=== PATIENT | female | born 1980 | race Caucasian/White ===

== ENCOUNTER 2018-05-12 16:05 | Inpatient (IN) | payer BC ==
[~2018-05-12] VITALS: Ht 162.6 cm; Wt 52.2 kg
[2018-05-12 16:05] VITALS: BP 115/75
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
[2018-05-12] MEDS ORDERED: HYDROmorphone 1mg/ml Carpuject IVP ONE ×2 (16:30→20:30)
--- NOTE | 2018-05-12 16:44 | Emergency Room Report ---
History of Present Illness General Chief Complaint: Back Pain-No Injury Source: Patient Present Illness HPI 37-year-old female patient presents the ER brought in by ambulance complaining of low back pain for the past hour. Patient reports history of chronic low back pain however states that this is worse. Reports has had similar attacks of acute exacerbations of chronic pain in the past. Denies bowel or bladder incontinence. Reports pain radiating down legs. Denies abdominal pain. Denies fever, chest pain, shortness of breath. Denies acute injury or accident. 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 Reports not currently taking any medication for relief of pain symptoms. Denies dysuria, hematuria. Allergies: Coded Allergies: SULFA (SULFONAMIDE ANTIBIOTICS) (Verified Allergy, Intermediate, 05/12/18) Patient History Past Medical History: see triage record Now: No Reviewed Nursing Documentation: PMH: Agreed; PSxH: Agreed Nursing Documentation-PMH Hx COPD: Yes Review of Systems All Other Systems: negative except mentioned in HPI Physical Exam Vital Signs Date Time Temp Pulse Resp B/P (MAP) Pulse Ox O2 Delivery O2 Flow Rate FiO2 05/12/18 16:05 97.9 88 16 115/75 98 Room Air Sp02 EP Interpretation: reviewed, normal General Appearance: well appearing, no apparent distress, alert, GCS 15, non- toxic Head: normocephalic, atraumatic Eyes: bilateral eye normal inspection, bilateral eye PERRL ENT: hearing grossly normal, normal pharynx, no angioedema, normal voice, uvula midline, moist mucus membranes Neck: full range of motion, no bony tend Respiratory: lungs clear, normal breath sounds, no rhonchi, no respiratory distress, no accessory muscle use, no wheezing, speaking full sentences Cardiovascular #1: regular rate, rhythm, no edema Gastrointestinal: non tender, soft, no mass, non-distended, no guarding, no rebound Rectal: normal rectal tone, other - No saddle anesthesia Genitourinary: no CVA tenderness Musculoskeletal: back normal, digits/nails normal, gait/station normal, normal range of motion, non-tender Neurologic: alert, oriented x3, responsive, motor strength/tone normal, sensory intact Psychiatric: mood/affect normal Skin: no rash Medical Decision Making PA Attestation Dr. Perdue is my supervising Physician whom patient management has been discussed with. Diagnostic Impression: Primary Impression: Intractable back pain Additional Impression: History of COPD ER Course Pt presents to ED c/o back pain. DDX considered but are not limited to sprain, strain, cauda equine, epidural abscess, AAA, spinal cord compression, kidney stones. No fever, nontoxic appearing, no radiation of pain, low suspicion for epidural mass. No abdominal pain, no blood pressure elevation, nontoxic appearing, low suspicion for AAA. VITAL SIGNS are WNL, patient is afebrile Ordered pain medication, imaging, labs. ER COURSE: Pain medication provided. CBC and CMP unremarkable, no elevation in WBCs UA unremarkable, negative nitrites, denies pains, low suspicion for UTI. Urine negative. CT thoracic and lumbar spine are negative for acute fracture. Loss of vertebral body height noted on thoracic CT. On repeat examination, patient complaining of bilateral leg weakness and bladder incontinence, no saddle anesthesia, good rectal tone, low suspicion for cauda equina however will order lumbar spine to rule out cord compression or cauda equina. Patient seen and evaluated by Dr. Hitchcock, agrees with assessment treatment plan. Patient seen and evaluated by Dr. Perdue, will admit patient for intractable pain. Provide with second dose of Dilaudid pain medication. MRI lumbar spine shows No acute abnormality. Chronic appearing superior endplate compression fracture deformity of L1 in patient with known history of multiple vertebral compression fractures. Associated mild T12-L1 disc degeneration and Schmorl's node. Incidental finding left renal cyst - Please note that this Emergency Department Report was dictated using [employer] sprinkler service technician technology software, occasionally this can lead to erroneous entry secondary to interpretation by the dictation equipment. Labs Test 05/12/18 16:39 05/12/18 18:20 White Blood Count 6.5 K/UL (4.8-10.8) Red Blood Count 3.98 M/UL (4.20-5.40) Hemoglobin 12.5 G/DL (12.0-16.0) Hematocrit 37.2 % (37.0-47.0) Mean Corpuscular Volume 94 FL (80-99) Mean Corpuscular Hemoglobin 31.3 PG (27.0-31.0) Mean Corpuscular Hemoglobin Concent 33.5 G/DL (32.0-36.0) Red Cell Distribution Width 11.6 % (11.6-14.8) Platelet Count 125 K/UL (150-450) Mean Platelet Volume 9.2 FL (6.5-10.1) Neutrophils (%) (Auto) 47.6 % (45.0-75.0) Lymphocytes (%) (Auto) 42.0 % (20.0-45.0) Monocytes (%) (Auto) 7.0 % (1.0-10.0) Eosinophils (%) (Auto) 1.8 % (0.0-3.0) Basophils (%) (Auto) 1.7 % (0.0-2.0) Sodium Level 141 MMOL/L (136-145) Potassium Level 3.6 MMOL/L (3.5-5.1) Chloride Level 107 MMOL/L (98-107) Carbon Dioxide Level 27 MMOL/L (21-32) Anion Gap 7 mmol/L (5-15) Blood Urea Nitrogen 13 mg/dL (7-18) Creatinine 0.8 MG/DL (0.55-1.30) Estimat Glomerular Filtration Rate > 60 mL/min (>60) Glucose Level 80 MG/DL (74-106) Calcium Level 8.7 MG/DL (8.5-10.1) Total Bilirubin 0.4 MG/DL (0.2-1.0) Aspartate Amino Transf (AST/SGOT) 11 U/L (15-37) Alanine Aminotransferase (ALT/SGPT) 18 U/L (12-78) Alkaline Phosphatase 79 U/L (46-116) Total Protein 6.2 G/DL (6.4-8.2) Albumin 3.3 G/DL (3.4-5.0) Globulin 2.9 g/dL Albumin/Globulin Ratio 1.1 (1.0-2.7) Lipase 91 U/L (73-393) Urine Color Pale yellow Urine Appearance Slightly cloudy Urine pH 6 (4.5-8.0) Urine Specific [place] 1.015 (1.005-1.035) Urine Protein Negative (NEGATIVE) Urine Glucose (UA) Negative (NEGATIVE) Urine Ketones Negative (NEGATIVE) Urine Blood 1+ (NEGATIVE) Urine Nitrite Negative (NEGATIVE) Urine Bilirubin Negative (NEGATIVE) Urine Urobilinogen Normal MG/DL (0.0-1.0) Urine Leukocyte Esterase Negative (NEGATIVE) Urine RBC 0-2 /HPF (0 - 2) Urine WBC 0-2 /HPF (0 - 2) Urine Squamous Epithelial Cells Many /LPF (NONE/OCC) Urine Bacteria Moderate /HPF (NONE) Urine HCG, Qualitative Negative (NEGATIVE) CT/MRI/US Diagnostic Results CT/MRI/US Diagnostic Results #1: Imaging Test Ordered: CT thoracic spine Impression No definitive acute fracture or traumatic malalignment of the thoracic spine. Exaggerated thoracic kyphosis with multilevel vertebral body height loss and anterior wedging as well as disc space height loss and osteophytosis. No significant spinal canal stenosis. 4 mm right thyroid nodule. Small left and possible right pleural effusions. CT/MRI/US Diagnostic Results #2: Imaging Test Ordered: CT lumbar spine Impression No fracture or traumatic malalignment of the lumbar spine. L1 Schmorl's node. No spinal canal or neural foraminal stenosis. CT/MRI/US Diagnostic Results #3: Imaging Test Ordered: MRI L spine Impression Impression: No acute abnormality Chronic appearing superior endplate compression fracture deformity of L1 in patient with known history of multiple vertebral compression fractures. Associated mild T12-L1 disc degeneration and Schmorl's node Incidental finding left renal cyst Last Vital Signs Date Time Temp Pulse Resp B/P (MAP) Pulse Ox O2 Delivery O2 Flow Rate FiO2 05/12/18 16:05 97.9 88 16 115/75 98 Room Air Disposition: ADMITTED INPATIENT Condition: Serious Danny Upton May 12, 2018 16:44
--- NOTE | 2018-05-12 16:45 | NUR ---
ED Nurse Note: Pt unable to giove urine sample. Will try again later.
[2018-05-12 17:01] LABS: BASOPHILS % (AUTO) 1.7 % (0.0-2.0); EOSINOPHILS % (AUTO) 1.8 % (0.0-3.0); HEMATOCRIT 37.2 % (37.0-47.0); HEMOGLOBIN 12.5 G/DL (12.0-16.0); MEAN CORPUSCULAR VOLUME 94 FL (80-99); NEUTROPHILS % (AUTO) 47.6 % (45.0-75.0); PLATELET COUNT 125 K/UL (150-450); RED BLOOD COUNT 3.98 M/UL (4.20-5.40); RED CELL DISTRIBUTION WIDTH 11.6 % (11.6-14.8); WHITE BLOOD COUNT 6.5 K/UL (4.8-10.8)
[2018-05-12 17:22] LABS: ANION GAP 7 mmol/L (5-15); BLOOD UREA NITROGEN 13 mg/dL (7-18); CALCIUM 8.7 MG/DL (8.5-10.1); CARBON DIOXIDE 27 MMOL/L (21-32); CHLORIDE 107 MMOL/L (98-107); CREATININE 0.8 MG/DL (0.55-1.30); POTASSIUM 3.6 MMOL/L (3.5-5.1); SODIUM 141 MMOL/L (136-145)
[2018-05-12 17:26] LABS: ALANINE AMINOTRANSFERASE 18 U/L (12-78); ALBUMIN 3.3 G/DL (3.4-5.0); ALBUMIN/GLOBULIN RATIO 1.1 (1.0-2.7); ALKALINE PHOSPHATASE 79 U/L (46-116); ASPARTATE AMINO TRANSFERASE 11 U/L (15-37); BILIRUBIN,TOTAL 0.4 MG/DL (0.2-1.0)
--- NOTE | 2018-05-12 17:45 | NUR ---
ED Nurse Note: Pt still unable to provide a urine specimen at this time.
--- NOTE | 2018-05-12 18:07 | NUR ---
ED Nurse Note: Urine specimen sent.
[2018-05-12 18:41] LABS: APPEARANCE,URINE SLIGHTLY CLOUDY; BILIRUBIN, URINE NEGATIVE (NEGATIVE); COLOR,URINE PALE YELLOW; GLUCOSE, URINE (UA) NEGATIVE (NEGATIVE); KETONES,URINE NEGATIVE (NEGATIVE); LEUKOCYTE ESTERASE ,URINE NEGATIVE (NEGATIVE); NITRITE,URINE NEGATIVE (NEGATIVE); PH,URINE 6 (4.5-8.0); PROTEIN,URINE NEGATIVE (NEGATIVE); UROBILINOGEN,URINE NORMAL MG/DL (0.0-1.0)
[2018-05-12 19:00] VITALS: BP 114/76
--- NOTE | 2018-05-12 19:27 | NUR ---
HAND-OFF: Report given to Dontae LEAVITT.
--- NOTE | 2018-05-12 19:30 | NUR ---
ED Nurse Note: PT was reassessed. pt was instructed about signs and simptoms of all prescribed medications. pt vital signs are stable at this time. pt is alert and oriented times 4.
[2018-05-12] MEDS ORDERED: CYCLOBENZAPRINE10 MG ORAL (20:44)
[2018-05-12] MEDS ORDERED: VITAMIN B COMP1 EAC2 ORAL (20:44)
[2018-05-12] MEDS ORDERED: ASPIRIN325 MG ORAL (20:44)
[2018-05-12] MEDS ORDERED: VALIUM10 MG ORAL (20:44)
[2018-05-12] MEDS ORDERED: IBUPROFEN600 MG ORAL (20:44)
[2018-05-12] MEDS ORDERED: Trelegy Ellipta INH (20:44)
[2018-05-12] MEDS ORDERED: VITAMIN D1000 UNI1 ORAL (20:44)
[2018-05-12] MEDS ORDERED: GABAPENTIN600 MG ORAL (20:44)
[2018-05-12] MEDS ORDERED: FORTEO2.4 ML SUBQ (20:44)
[2018-05-12] MEDS ORDERED: MULTIVITAMINS1 EAC2 ORAL (20:44)
[2018-05-12] MEDS ORDERED: SOMA350 MG PO (20:44)
[2018-05-12] MEDS ORDERED: FLUDROCORTISON0.1 MG PO (20:44)
[2018-05-12] MEDS ORDERED: TRAZODONE HCL100 MG ORAL (20:44)
[2018-05-12] MEDS ORDERED: TYLENOL EXTRA500 MG ORAL (20:44)
[2018-05-12 21:10] VITALS: BP 115/78
--- NOTE | 2018-05-12 21:40 | NUR ---
ED Nurse Note: PT was reassessed at this time. pt boyfriend is still in bed side. pt and boy friend was offered a sandwhich and juice. pt vital signs are stable at this time. pt is alert and oriented times 4. pulse and sensation is noted on all extremities. cap refill is less than 3.
[2018-05-12 22:54] VITALS: BP 119/76
--- NOTE | 2018-05-12 23:41 | NUR ---
ED Nurse Note: Pt is reassessed at this time. vital signs are stable. pt is alert and oriented times 4. boy friend is still at bed side.
[2018-05-13] VITALS (8 sets, daily range): BP systolic 92–126; BP diastolic 54–87
--- NOTE | 2018-05-13 01:40 | NUR ---
ED Nurse Note: Pt is asleep at this time. pt vital signs are stable. pt vital signs from portable machine: BP:109/60, HR: 65, O2% at 98, temp : 98.4
[2018-05-13] MEDS ORDERED: HYDROcodone/Acetamin 10/325 tab ORAL SCH (01:45)
[2018-05-13] MEDS ORDERED: Norco 5mg/325mg tab ORAL SCH (01:45)
[2018-05-13] MEDS ORDERED: Morphine Sulfate 2mg/ml Inj IVP PRN ×2 (01:45→09:22)
--- NOTE | 2018-05-13 02:00 | NUR ---
ED Nurse Note: Pt was offered Morphine IV 2MG per ERMD order. PT refused mediaction saying "it is not strong enough for her"
--- NOTE | 2018-05-13 04:00 | NUR ---
ED Nurse Note: Pt is reassesed at this time. pt vital signs is stable. pt is still asleep.
[2018-05-13] MEDS ORDERED: Morphine Sulfate 2mg/ml Inj IVP SCH (05:15)
[2018-05-13] MEDS ORDERED: Morphine Sulfate 2mg/ml Inj ONE (05:19)
--- NOTE | 2018-05-13 05:30 | NUR ---
ED Nurse Note: pt stated she was in pain. pipe line was contacted. SILVANO simpson Chargr RN approved of Hydromorphone 1MG IVP. vital signs are stable and were reported to SILVANO prior to requesting pain medication.
--- NOTE | 2018-05-13 05:40 | NUR ---
ED Nurse Note: Phone with impression printer MD Mcdonald, verified with all meds orders. Inform pharmacy and left message verified all the meds.
[2018-05-13] MEDS ORDERED: Norco 5mg/325mg tab ORAL PRN ×2 (06:00→10:15)
[2018-05-13] MEDS ORDERED: HYDROcodone/Acetamin 10/325 tab ORAL PRN ×2 (06:00→10:15)
[2018-05-13 06:26] LABS: BASOPHILS % (AUTO) 1.2 % (0.0-2.0); EOSINOPHILS % (AUTO) 1.7 % (0.0-3.0); HEMATOCRIT 34.6 % (37.0-47.0); HEMOGLOBIN 11.8 G/DL (12.0-16.0); LYMPHOCYTES % (AUTO) 35.4 % (20.0-45.0); MEAN CORPUSCULAR VOLUME 94 FL (80-99); MONOCYTES % (AUTO) 6.4 % (1.0-10.0); NEUTROPHILS % (AUTO) 55.2 % (45.0-75.0); PLATELET COUNT 122 K/UL (150-450); RED CELL DISTRIBUTION WIDTH 11.5 % (11.6-14.8); WHITE BLOOD COUNT 7.3 K/UL (4.8-10.8)
[2018-05-13 06:35] LABS: ANION GAP 6 mmol/L (5-15); BLOOD UREA NITROGEN 10 mg/dL (7-18); CALCIUM 7.8 MG/DL (8.5-10.1); CARBON DIOXIDE 28 MMOL/L (21-32); CHLORIDE 107 MMOL/L (98-107); CREATININE 0.7 MG/DL (0.55-1.30); POTASSIUM 3.2 MMOL/L (3.5-5.1); SODIUM 141 MMOL/L (136-145)
--- NOTE | 2018-05-13 07:14 | NUR ---
ED Nurse Note: Report given to TREE Jain at ext [phone]. Pt to be transfered to room 410-2 per protocol with all belongings.
--- NOTE | 2018-05-13 08:07 | NUR ---
NURSE NOTES: received pt awake alert, no distress. in pain back pain 12/07 , paged Dr Weir received a call back , per md he will take a look at it since he is in ICU, relayed to md that pt is in pain and rn needs order for pain meds, diet order, code status call light within reach of pt. sacral area is intact.
[2018-05-13] MEDS ORDERED: VALIUM10 MG ORAL (08:50)
--- NOTE | 2018-05-13 09:37 | NUR ---
NURSE NOTES: per pt she takes valium 10 mg tid , relayed to DR Weir in person , per he will see the pt first.
--- NOTE | 2018-05-13 09:45 | NUR ---
NURSE NOTES: pt awake alert, no distress. call light within reach. bed in lowest position, locked. will monitor. Dr Weir aware of k level today, per md he will order.
[2018-05-13] MEDS: HYDROmorphone 1mg/ml Carpuject IVP PRN ×4 (10:11→21:58)
--- NOTE | 2018-05-13 11:02 | Diagnostic Imaging Report ---
Indication: Lower back pain, unable to move legs Technique: Sagittal T1 and T2 fast spin echo, sagittal STIR, axial T1 and T2 fast spin-echo images of the lumbar spine Comparison: Reference made to lumbar spine CT scan of earlier the same day Findings: There is slight superior endplate compression fracture deformity of the L1 vertebral body with associated L1 superior endplate intravertebral disc herniation. No underlying marrow edema demonstrated. There is some associated loss of disc height at this level. There is a small hemangioma within L1. The remainder of the vertebral marrow signal is normal. The remaining vertebral body heights are preserved. The disc spaces are preserved. The conus medullaris terminates at the L1 level. No significant disc bulge or protrusion, spinal stenosis, or neural foraminal stenosis noted. The included extra spinal soft tissues demonstrate a cyst in the left kidney. Impression: No acute abnormality Chronic appearing superior endplate compression fracture deformity of L1 in patient with known history of multiple vertebral compression fractures. Associated mild T12-L1 disc degeneration and Schmorl's node Incidental finding left renal cyst This essentially agrees with the [facility] preliminary report, with minor variation
--- NOTE | 2018-05-13 11:22 | NUR ---
NURSE NOTES: pt requested for guillaume due to feeling of urgency but unable to urinate; guillaume 16fr inserted patent and intact, pt had 599 ml from bladder scan. Dr Weir ordered guillaume
[2018-05-13] MEDS: Cyclobenzaprine 10mg Tab ORAL SCH ×2 (13:08→21:44)
--- NOTE | 2018-05-13 14:22 | History and Physical ---
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 Reports has had similar attacks of acute exacerbations of chronic pain in the past. Denies bowel or bladder incontinence. Reports pain radiating down legs. Denies abdominal pain. Denies fever, chest pain, shortness of breath. Denies acute injury or accident. Reports not currently taking any medication for relief of pain symptoms. Denies dysuria, hematuria. She was treated with IV morphine without improvement in her symptoms, did get pain relief with IV Dilaudid. Family History: No CAD or stroke Social History: Former smoker Allergies: Coded Allergies: SULFA (SULFONAMIDE ANTIBIOTICS) (Verified Allergy, Intermediate, 05/12/18) Medication History Scheduled Aspirin* (Aspirin*), 325 MG ORAL DAILY, (Reported) Carisoprodol* (Soma*), 350 MG PO BID, (Reported) Cholecalciferol (Vitamin D3)* (Vitamin D*), 3,000 UNITS ORAL DAILY, (Reported) Cyclobenzaprine Hcl* (Flexeril*), 10 MG ORAL THREE TIMES A DAY, (Reported) Diazepam* (Valium*), 10 MG ORAL TID, (Reported) Diazepam* (Valium*), 10 MG ORAL TID, (Reported) Fludrocortisone Acetate (Fludrocortisone Acetate), 0.1 MG PO DAILY, (Reported) Gabapentin* (Gabapentin*), 600 MG ORAL THREE TIMES A DAY, (Reported) Ibuprofen* (Motrin*), 800 MG ORAL THREE TIMES A DAY, (Reported) Multivitamins* (Multivitamins*), 1 TAB ORAL DAILY, (Reported) Teriparatide Acetate (Forteo), 20 MCG SUBQ DAILY, (Reported) Trazodone Hcl* (Desyrel*), 100 MG ORAL BEDTIME, (Reported) [Trelegy Ellipta], 1 INH DAILY, (Reported) Scheduled PRN Acetaminophen* (Tylenol Extra Strength*), 500 MG ORAL Q4HR PRN for Mild Pain/ Temp > 100.5, (Reported) Miscellaneous Medications Vitamin B Complex (Vitamin B Complex), 1 CAP ORAL, (Reported) Patient History Healthcare decision maker Resuscitation status Advanced Directive on File Review of Systems Constitutional: Denies: chills, fever Eye: Denies: eye pain, blurred vision ENT: Denies: ear pain, ear discharge Respiratory: Denies: cough, shortness of breath Cardiovascular: Denies: chest pain, edema, palpitations Gastrointestinal: Denies: abdominal pain, constipation Genitourinary: Denies: discharge, dysuria Musculoskeletal: Denies: back pain, gout Skin: Denies: rash, change in color Neurological: Denies: headache, numbness, paresthesia, seizure, tingling, tremors, focal weakness Physical Exam General Appearance: no apparent distress, alert Lines, tubes and drains: peripheral HEENT: normocephalic, atraumatic, anicteric, mucous membranes moist Neck: non-tender, normal alignment, supple Respiratory/Chest: chest wall non-tender, lungs clear, normal breath sounds, no respiratory distress Cardiovascular/Chest: normal peripheral pulses, normal rate, regular rhythm Abdomen: normal bowel sounds, non tender, soft, no organomegaly, no mass Extremities: non-tender, normal inspection, no calf tenderness Neurologic: bakery clerk II-XII grossly normal, no motor/sensory deficits, alert, oriented x 3 Last 24 Hour Vital Signs Date Time Temp Pulse Resp B/P (MAP) Pulse Ox O2 Delivery O2 Flow Rate FiO2 05/13/18 13:38 98.0 05/13/18 13:37 98.0 05/13/18 13:37 98.0 05/13/18 10:41 98.0 05/13/18 09:34 Room Air 05/13/18 09:09 98.0 05/13/18 09:09 98.0 05/13/18 08:04 98.0 67 20 106/68 (81) 97 05/13/18 07:15 97.9 78 15 126/87 99 Room Air 05/13/18 06:56 97.9 78 15 126/87 99 Room Air 05/13/18 05:52 97.9 05/13/18 05:07 97.9 74 17 123/85 99 Room Air 05/13/18 03:20 97.9 68 16 120/82 99 Room Air 2/14/19 01:15 97.9 61 16 115/79 98 Room Air 05/12/18 22:54 97.9 65 15 119/76 99 Room Air 05/12/18 21:10 97.9 73 14 115/78 99 Room Air 05/12/18 21:07 97.8 05/12/18 19:00 97.9 70 15 114/76 99 Room Air 05/12/18 17:13 97.8 05/12/18 16:05 97.9 16 115/75 98 Room Air 05/12/18 16:05 97.9 88 16 115/75 98 Room Air Intake and Output 05/12/18 05/13/18 19:00 07:00 Intake Total 1000 ml Balance 1000 ml Intake IV Total 1000 ml # Voids 1 Laboratory Tests Test 05/12/18 16:39 05/12/18 18:20 05/13/18 06:17 White Blood Count 6.5 K/UL (4.8-10.8) 7.3 K/UL (4.8-10.8) Red Blood Count 3.98 M/UL (4.20-5.40) L 3.70 M/UL (4.20-5.40) L Hemoglobin 12.5 G/DL (12.0-16.0) 11.8 G/DL (12.0-16.0) L Hematocrit 37.2 % (37.0-47.0) 34.6 % (37.0-47.0) L Mean Corpuscular Volume 94 FL (80-99) 94 FL (80-99) Mean Corpuscular Hemoglobin 31.3 PG (27.0-31.0) H 32.0 PG (27.0-31.0) H Mean Corpuscular Hemoglobin Concent 33.5 G/DL (32.0-36.0) 34.2 G/DL (32.0-36.0) Red Cell Distribution Width 11.6 % (11.6-14.8) 11.5 % (11.6-14.8) L Platelet Count 125 K/UL (150-450) L 122 K/UL (150-450) L Mean Platelet Volume 9.2 FL (6.5-10.1) 9.8 FL (6.5-10.1) Neutrophils (%) (Auto) 47.6 % (45.0-75.0) 55.2 % (45.0-75.0) Lymphocytes (%) (Auto) 42.0 % (20.0-45.0) 35.4 % (20.0-45.0) Monocytes (%) (Auto) 7.0 % (1.0-10.0) 6.4 % (1.0-10.0) Eosinophils (%) (Auto) 1.8 % (0.0-3.0) 1.7 % (0.0-3.0) Basophils (%) (Auto) 1.7 % (0.0-2.0) 1.2 % (0.0-2.0) Sodium Level 141 MMOL/L (136-145) 141 MMOL/L (136-145) Potassium Level 3.6 MMOL/L (3.5-5.1) 3.2 MMOL/L (3.5-5.1) L Chloride Level 107 MMOL/L (98-107) 107 MMOL/L (98-107) Carbon Dioxide Level 27 MMOL/L (21-32) 28 MMOL/L (21-32) Anion Gap 7 mmol/L (5-15) 6 mmol/L (5-15) Blood Urea Nitrogen 13 mg/dL (7-18) 10 mg/dL (7-18) Creatinine 0.8 MG/DL (0.55-1.30) 0.7 MG/DL (0.55-1.30) Estimat Glomerular Filtration Rate > 60 mL/min (>60) > 60 mL/min (>60) Glucose Level 80 MG/DL (74-106) 72 MG/DL (74-106) L Calcium Level 8.7 MG/DL (8.5-10.1) 7.8 MG/DL (8.5-10.1) L Total Bilirubin 0.4 MG/DL (0.2-1.0) Aspartate Amino Transf (AST/SGOT) 11 U/L (15-37) L Alanine Aminotransferase (ALT/SGPT) 18 U/L (12-78) Alkaline Phosphatase 79 U/L (46-116) Total Protein 6.2 G/DL (6.4-8.2) L Albumin 3.3 G/DL (3.4-5.0) L Globulin 2.9 g/dL Albumin/Globulin Ratio 1.1 (1.0-2.7) Lipase 91 U/L (73-393) Urine Color Pale yellow Urine Appearance Slightly cloudy Urine pH 6 (4.5-8.0) Urine Specific [place] 1.015 (1.005-1.035) Urine Protein Negative (NEGATIVE) Urine Glucose (UA) Negative (NEGATIVE) Urine Ketones Negative (NEGATIVE) Urine Blood 1+ (NEGATIVE) H Urine Nitrite Negative (NEGATIVE) Urine Bilirubin Negative (NEGATIVE) Urine Urobilinogen Normal MG/DL (0.0-1.0) Urine Leukocyte Esterase Negative (NEGATIVE) Urine RBC 0-2 /HPF (0 - 2) Urine WBC 0-2 /HPF (0 - 2) Urine Squamous Epithelial Cells Many /LPF (NONE/OCC) H Urine Bacteria Moderate /HPF (NONE) H Urine HCG, Qualitative Negative (NEGATIVE) Microbiology Date/Time Source Procedure Growth Status 05/12/18 18:20 Urine,Clean Catch Urine Culture - Preliminary NO GROWTH Resulted Height (Feet): 5 Height (Inches): 4.00 Weight (Pounds): 120 Medications Current Medications Medications (Trade) Dose Ordered Sig/Carmen Route PRN Reason Start Time Stop Time Status Last Admin Dose Admin Acetaminophen (Tylenol) 650 mg Q6HR ORAL 05/13/18 01:45 06/12/18 01:44 05/13/18 13:07 Acetaminophen/ Hydrocodone Bitart ([place] 10/325) 1 tab Q4H PRN ORAL Moderate pain 4-6 05/13/18 10:15 05/20/18 05:59 Acetaminophen/ Hydrocodone Bitart ([place] 5/325) 1 tab Q4H PRN ORAL Mild Pain 1-3 05/13/18 10:15 05/20/18 05:59 Aspirin (ASA) 325 mg DAILY ORAL 05/13/18 09:00 06/12/18 08:59 05/13/18 08:38 Carisoprodol (Soma) 350 mg BID ORAL 05/13/18 09:00 06/12/18 08:59 05/13/18 08:39 Cyclobenzaprine HCl (Flexeril) 10 mg Q8HR ORAL 05/13/18 14:00 06/12/18 13:59 05/13/18 13:08 Fludrocortisone Acetate (Florinef) 0.1 mg DAILY ORAL 05/13/18 09:00 06/12/18 08:59 05/13/18 08:46 Gabapentin (Neurontin) 600 mg THREE TIMES A DAY ORAL 05/13/18 09:00 06/12/18 08:59 05/13/18 13:07 Hydromorphone HCl (Dilaudid) 1 mg Q4H PRN IVP Severe Pain (Pain Scale 7-10) 05/13/18 10:00 05/20/18 09:59 05/13/18 13:57 Ibuprofen (Advil) 800 mg TID ORAL 05/13/18 09:00 06/12/18 08:59 05/13/18 13:07 Ondansetron HCl (Zofran) 4 mg Q4H PRN IVP Nausea & Vomiting 05/13/18 06:00 06/12/18 05:59 Trazodone HCl (Desyrel) 100 mg BEDTIME ORAL 05/13/18 21:00 06/12/18 20:59 Assessment/Plan Assessment/Plan #Acute on chronic back pain #history of Xander-Danlos and OI #history of chronic spinal compression fractures #MRI spine without acute pathology #Urinary retention #Hypokalemia -admit to medical floor -started IV Dilaudid for severe pain -PT/OT evals -Haji catheter placed -replace oral KCl -check BMP in AM Full Code VTE PPx I spent 70 minutes on this patient's case, and~35~minutes was dedicated to counseling and/or care coordination. Jasbir Good MD May 13, 2018 14:22
--- NOTE | 2018-05-13 17:39 | Diagnostic Imaging Report ---
Indications: Severe back pain radiating down back and legs Technique: Spiral acquisitions obtained through the lumbar spine. Multiplanar reconstructions were generated. No IV contrast utilized. Total dose length product 855 mGycm. CTDIvol(s) 14, 10 mGy. Dose reduction achieved using automated exposure control Comparison: none Findings: There is a superior endplate compression fracture deformity of the L1 vertebral body. The remaining vertebral body heights are preserved. No other acute fractures. No dislocations. The disc spaces are preserved. No significant disc bulge or protrusion, spinal stenosis, or neural foraminal stenosis. The included extra spinal soft tissues are unremarkable Impression: L1 superior endplate compression fracture deformity, age indeterminate. Possibly old, given stated clinical history of multiple prior compression fractures. MRI may be useful to clarify acuity as clinically indicated No definite acute bony trauma otherwise This agrees with the [facility] preliminary report, with some variation The CT scanner at [facility] is accredited by the [place] and the scans are performed using protocols designed to limit radiation exposure to as low as reasonably achievable to attain images of sufficient resolution adequate for diagnostic evaluation.
--- NOTE | 2018-05-13 17:39 | Diagnostic Imaging Report ---
Indication: Severe low back pain Technique: Spiral acquisitions obtained through the thoracic spine. No IV contrast utilized. Multiplanar reconstructions were generated. Total dose length product 855.44 mGycm. CTDIvol(s) 14.71,10.63 mGy. Dose reduction achieved using automated exposure control Comparison: none Findings: There is an anterior wedge compression fracture deformity resulting in about 40% loss of height involving the T6 vertebral body. There is more questionable slight loss of height of the T3 and T4 vertebral bodies, as well as suggestion of a slight superior endplate compression of the T7 vertebral body. There is approximately 20% height loss anteriorly of the T8 vertebral body and of the T9 vertebral body. There is a superior endplate compression fracture deformity of the L1 vertebral body. The thoracic deformities result in upper thoracic kyphotic deformity. The remainder of the bony alignment is normal. No other fractures are evident. No evidence of significant disc bulge or protrusion, spinal stenosis, or neural foraminal stenosis. There are degenerative proliferative changes of the upper thoracic spine. The disc spaces are preserved. There is minimal lower thoracic facet arthrosis on the left. The included extraspinal soft tissues demonstrate small bilateral pleural effusions. Multiple small subcentimeter nodules are seen in the right thyroid lobe. Surgical clips are seen in the right upper quadrant of the abdomen. Impression: Multiple thoracic and upper lumbar compression fracture deformities, as described. Acuity indeterminate, but technologist report states patient has clinical history of multiple compression fractures. Consider MRI for better clarification of acuity if clinically indicated. Upper thoracic kyphosis related to the above Multiple subcentimeter right lobe thyroid nodule. No further evaluation necessary Small bilateral right pleural effusions Evidence of prior cholecystectomy This agrees with the preliminary interpretation provided overnight by [facility] teleradiology service. The CT scanner at [facility] is accredited by the [employer] and the scans are performed using protocols designed to limit radiation exposure to as low as reasonably achievable to attain images of sufficient resolution adequate for diagnostic evaluation.
--- NOTE | 2018-05-13 19:01 | NUR ---
HAND-OFF: Report given to VAIBHAV LEAVITT.
--- NOTE | 2018-05-13 19:30 | NUR ---
NURSE NOTES: Received patient in no apparent distress. A&OX4. IV site patent and intact. Haji draining well by gravity, yellow urine noted. Visitor at bedside. Bed in lowest position. Call light within reach. Will continue to monitor.
--- NOTE | 2018-05-13 20:51 | NUR ---
CASE MANAGEMENT: INITIAL REVIEW 05/12/2018 37 YO F BIBA FROM HOME CC: SEVERE LOW BACK PAIN PMHx: DENIES SI:INTRACTABLE PAIN. T 97.9 HR 88 RR 16 B/P 115/75 SATS 98% ON RA AST 11 IS: DILAUDID IV X1 NS BOLUS X1 CT L SPINE (Impression: L1 superior endplate compression fracture deformity, age indeterminate. Possibly old, given stated clinical history of multiple prior compression fractures. MRI may be useful to clarify acuity as clinically indicated) CT T SPINE (Impression: Multiple thoracic and upper lumbar compression fracture deformities, as described. Acuity indeterminate, but technologist report states patient has clinical history of multiple compression f Fractures. Consider MRI for better clarification of acuity if clinically indicated.) MRI L SPINE (Impression: No acute abnormality) PATIENT ADMITTED TO MED/SURG 05/12/2018 @ 1948 DCP: PATIENT TO BE DISCHARGED TO HOME ONCE MEDICALLY CLEARED. PLAN OF CARE: -started IV Dilaudid for severe pain -PT/OT evals -Haji catheter placed -replace oral KCl 05/13/2018 SI:INTRACTABLE PAIN. T 98 HR 82 RR 20 B/P 104/68 SATS 97% ON RA K 3.2 IS: TRAZODONE PO QHS ASA PO QD FLORINEF PO QD SOMA PO Q12H TYLENOL PO Q6H FLEXERIL PO Q8H ADVIL PO TID GABAPENTIN PO TID MED/SURG STATUS DCP: PATIENT TO BE DISCHARGED TO HOME ONCE MEDICALLY CLEARED. PLAN OF CARE: PAIN MANAGEMENT
[2018-05-13] MEDS ORDERED: TraZODone 100mg tab ORAL SCH (21:00)
[2018-05-14] VITALS: BP 108/56
[2018-05-14 05:00] VITALS: BP 90/53
[2018-05-14] MEDS: HYDROmorphone 1mg/ml Carpuject IVP PRN ×3 (06:03→14:05)
[2018-05-14] MEDS: Cyclobenzaprine 10mg Tab ORAL SCH ×2 (06:03→14:05)
--- NOTE | 2018-05-14 07:27 | NUR ---
HAND-OFF: Report given to Cecilia LEAVITT.
[2018-05-14 07:31] LABS: ANION GAP 6 mmol/L (5-15); BLOOD UREA NITROGEN 10 mg/dL (7-18); CALCIUM 8.4 MG/DL (8.5-10.1); CARBON DIOXIDE 27 MMOL/L (21-32); CHLORIDE 109 MMOL/L (98-107); CREATININE 0.7 MG/DL (0.55-1.30); POTASSIUM 3.4 MMOL/L (3.5-5.1); SODIUM 142 MMOL/L (136-145)
--- NOTE | 2018-05-14 07:54 | NUR ---
NURSE NOTES: Report received from TREE Toussaint. Pt in bed, awake, talkative, no apparent distress noted, pt complaining of back pain, last pain meds given at 0630 by TREE Toussaint. Pt states pain in chronic, discussed pain schedule and plan, will provide pain medications as soon as open to give, will continue to monitor, bed in lowest position, call light within reach.
[2018-05-14 08:00] VITALS: BP 87/47
[2018-05-14 08:01] LABS: BASOPHILS % (AUTO) 1.5 % (0.0-2.0); EOSINOPHILS % (AUTO) 2.7 % (0.0-3.0); HEMATOCRIT 34.6 % (37.0-47.0); HEMOGLOBIN 11.8 G/DL (12.0-16.0); LYMPHOCYTES % (AUTO) 40.6 % (20.0-45.0); MEAN CORPUSCULAR VOLUME 94 FL (80-99); MONOCYTES % (AUTO) 7.5 % (1.0-10.0); NEUTROPHILS % (AUTO) 47.8 % (45.0-75.0); PLATELET COUNT 121 K/UL (150-450); RED BLOOD COUNT 3.68 M/UL (4.20-5.40); RED CELL DISTRIBUTION WIDTH 11.8 % (11.6-14.8); WHITE BLOOD COUNT 4.5 K/UL (4.8-10.8)
[2018-05-14] MEDS: HYDROcodone/Acetamin 10/325 tab ORAL PRN ×2 (08:21→12:35)
--- NOTE | 2018-05-14 08:26 | NUR ---
NURSE NOTES: Spoke with Dr. Weir regarding K 3.4
--- NOTE | 2018-05-14 08:30 | NUR ---
NURSE NOTES: Dr. Weir aware pt wants to leave AMA to go to [facility], stated pt can leave with Haji catheter.
--- NOTE | 2018-05-14 10:49 | NUR ---
NURSE NOTES: Notified Dr. Kahn regarding pt's BP 87/47. No new orders given.
[2018-05-14 12:00] VITALS: BP 96/46
--- NOTE | 2018-05-14 13:45 | NUR ---
*-* INSURANCE *-* ALL CLINICALS AND REVIEWS FAXED TO: LUIS CASTILLOM:DORIS F:[phone] P:[phone] DIRECT SPOKE TO ZANDRA AND SHE REQUESTED CLINICAL BE FAXED TO THIS NUMBER...
--- NOTE | 2018-05-14 15:05 | NUR ---
NURSE NOTES: Pt left AMA. pt wanted to leave to go to [facility]. Dr. Liao is aware. IV removed, ID band removed, pt left with all belongings, signed AMA form. Addendum: 05/14/18 at 1559 by CELSO MARK RN Pt accompanied by [place] .
--- NOTE | 2018-05-14 15:12 | Discharge Summary ---
Discharge Summary Hospital Course Date of Admission May 12, 2018 at 19:48 Date of Discharge 05/14/18 Admitting Diagnosis intractable pain HPI Ambreen Rangel is a 37 year old female who was admitted on May 12, 2018 at 19:48 for Intractable Pain Hospital Course Patient presented to ED with acute on chronic back pain - she was admitted to the medical service for symptomatic control. Lumbar MRI negative for acute pathology. Patient noted to have urinary retention (~500 ml on bladders scan) so Haji catheter was placed. Patient is signing out against medical advice and going to [facility] ED since most of her medical care is received there. She will leave with a Haji catheter and be transported in her father's car. 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
== END 2018-05-14 15:05 | disposition left against medical advice (07) | DRG 552 ==
LOC: EDBD 16:05 → EMR 17:43 → 4E 19:48 → EDBEDREQ 05-13 07:10 → 4E 05-13 20:59
DX: M54.5 Low back pain (principal); Q79.6 Ehlers-Danlos syndromes; Q78.0 Osteogenesis imperfecta; M81.0 Age-related osteoporosis without current pathological fracture; J44.9 Chronic obstructive pulmonary disease, unspecified; Z88.2 Allergy status to sulfonamides; R33.9 Retention of urine, unspecified; E87.6 Hypokalemia
CPT/HCPCS: 36415; 72128; 72131; 72148; 80048; 80053; 81003; 81025; 83690; 85025; 87086; 96361; 96374; 96375; 96376; 99285; J8499